=== PATIENT | male | born 1990 | race Caucasian/White ===

== ENCOUNTER 2018-02-07 16:14 | Inpatient (IN) | END 2018-02-17 19:00 | disposition home health service (06) | DRG 722 ==

== ENCOUNTER 2018-02-27 11:32 | Inpatient (IN) | END 2018-03-07 13:30 | disposition home health service (06) | DRG 552 ==

== ENCOUNTER → 2018-05-05 | Outpatient (CLI) | END | disposition home or self-care (01) ==

== ENCOUNTER 2018-11-01 00:23 | Emergency (ER) | payer OTHER ==
[~2018-11-01] VITALS: Ht 170.2 cm; Wt 97.7 kg
[~2018-11-01 00:23] MED LIST: APIX5TAB PO; DOCU-216 PO; HYDR2TAB36 PO; MORP15TA3 PO; PROC5TAB9 PO; ZOF8 PO
[2018-11-01 00:24] VITALS: Ht 170.2 cm; Wt 97.7 kg
[2018-11-01] MEDS ORDERED: IBUPROFEN 600 MG TAB PO ONE (03:30)
[2018-11-01 05:51] VITALS: BP 110/71; PULSE 64; RESP 18
--- NOTE | 2018-11-03 21:40 | ERD ---
ER Documentation Chief Complaint Chief Complaint RIGHT TESTICULAR PAIN XTODAY; NO KNOWN INJ; NO REDNESS, NO SWELLING HPI 28yo M presents with complaint of Right testicular pain x 1 day. Pt states to have been engaging in sexual intercourse when began to feel pain in the right testicle. Rates pain currently as 2/10; however, expresses concern d/t current hx of Left sided testicular cancer. Last round Chemotherapy 5 months ago, and currently awaiting surgery. Pt denies fevers, chills, urinary symptoms, penile discharge, or abdominal pain. ROS All systems reviewed and are negative except as per history of present illness. Medications Home Meds Active Scripts Prochlorperazine* (Prochlorperazine*) 5 Mg Tablet, 5 MG PO Q6 PRN for NAUSEA for 30 Days, TAB Prov:ISHAAN RAYA MD 03/07/18 Ondansetron Hcl* (Zofran*) 8 Mg Tab, 8 MG PO Q6H PRN for NAUSEA AND OR VOMITING for 30 Days, TAB Prov:ISHAAN RAYA MD 03/07/18 Morphine Sulfate (Morphine Sulfate ER) 15 Mg Tablet.er, 15 MG PO TID for 60 Days, TAB Prov:ISHAAN RAYA MD 03/07/18 Hydromorphone Hcl* (Dilaudid*) 2 Mg Tablet, 2 MG PO Q3H PRN for SEVERE PAIN LEVEL 7-10 for 30 Days, TAB Prov:ISHAAN RAYA MD 03/07/18 Docusate Sodium (Dok) 100 Mg Capsule, 100 MG PO Q12H PRN for CONSTIPATION for 30 Days, #30 CAP Prov:ISHAAN RAYA MD 03/07/18 Apixaban* (Eliquis*) 5 Mg Tablet, 5 MG PO BID for 60 Days, TAB Prov:ISHAAN RAYA MD 02/17/18 Allergies Allergies: Coded Allergies: No Known Allergy (Unverified , 02/24/18) PMhx/Soc History of Surgery: Yes (ivc filter december 2017) Anesthesia Reaction: No Hx Neurological Disorder: No Hx Respiratory Disorders: Yes (pulmonary embolism) Hx Cardiac Disorders: No Hx Psychiatric Problems: No Hx Miscellaneous Medical Probl: Yes (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 Well nourished. No acute distress Head/Eyes: Atraumatic. Normocephalic. PERRL. EOMI ENT: Moist mucous membranes. Voice normal. Neck: Supple. No lymphadenopathy Cardio: Regular rate and rhythm. No murmurs, rubs, or gallops. Resp: No respiratory distress. Normal breath sounds. No wheezes, rales, or rhonchi. Abd: Soft. Non-tender. No guarding, rebound, or rigidity. Non-distended. Exam: Scrotum: Normal Hernia: None Testes/Epid: Right testicle TTP, no warmth, no nodules, w/ normal lie Cremaster: Reflex intact Lymph: No inguinal lymphadenopathy Discharge: None Neuro: Alert and oriented X 3. Normal speech Psych: Normal mood. Normal affect Results 24 hrs Laboratory Tests Test 11/01/18 03:26 Urine Color YELLOW Urine Clarity CLEAR Urine pH 5.0 Urine Specific [place] 1.024 Urine Ketones NEGATIVE mg/dL Urine Nitrite NEGATIVE mg/dL Urine Bilirubin NEGATIVE mg/dL Urine Urobilinogen NEGATIVE mg/dL Urine Leukocyte Esterase NEGATIVE Hannah/ul Urine Hemoglobin NEGATIVE mg/dL Urine Glucose NEGATIVE mg/dL Urine Total Protein NEGATIVE mg/dl Chlamydia trachomatis RNA (TMA) NOT DETECTED Chlamydia/GC Comment SEE NOTE Neisseria gonorrhoeae RNA (TMA) NOT DETECTED Current Medications Medications Dose Sig/Daniel Start Time Status Last (Trade) Ordered Route PRN Stop Time Admin Dose Reason Admin Ibuprofen 600 mg ONCE ONCE 11/01/18 DC 11/01/18 (Motrin) PO 03:30 03:25 11/01/18 03:31 Procedures/MDM PROCEDURE: US Scrotum. FINDINGS: The right testis measures 4.1 x 2.7 x 2.1 cm, and is uniform in appearance. There is color and Doppler flow present within the right testis. The left testis is of similar size and measures 4.0 x 2.9 x 2.0 cm. There is again a small region of inhomogeneity that is mildly hypoechoic relative to the remainder of the testicular parenchyma, containing a few small bright echoes suggesting tiny calcifications within, located in the posterior lower pole, as was noted on the prior ultrasound, with its size currently estimated at 11 x 8 x 7 mm (its size was estimated at 13 x 5 x 5 mm previously). There is color and Doppler flow within the left testis. The epididymis is normal in appearance bilaterally. No significant hydrocele. Bilateral varicocele again seen. IMPRESSION: Relatively similar ultrasound appearance compared to 02/14/2018, including unremarkable appearance of the right testis and epididymis. Left testis remains present with persistent ill-defined region of hypoechogenicity containing several punctate echoes again present in the left lower pole testis, presumably representing the site of the patient's known testicular neoplasm. Bilateral varicocele again present. MDM: This is a pleasant 28yo M with hx of Left Testicular CA who presents to the ED with complaint of Right sided testicular pain x 1 day s/p intercourse. Vitals stable, afebrile. Labs and imaging unremarkable, aside from bilateral varicocele with no change in the appearance of the right testis since previous US. Findings discussed with pt and counseled regarding rest, ice, and use of NSAIDs for pain. Lab and imaging findings given to pt as pt has appointment with Oncologist later this afternoon. Given pt scheduled follow-up and non-emergent findings, it is felt pt appropriate for discharge at this time. Strict f/u with oncologist and PCP discussed. Strict ED return precautions given. Pt expressed verbal understanding and agreement to treatment plan. All questions addressed and answered. Departure Diagnosis: Primary Impression: Testicular pain Additional Impression: History of testicular cancer Condition: Stable Patient Instructions: Cancer of the Testicles, Contusion, Testicles Or Scrotum CLAIRE SANTIZO PA-C Nov 03, 2018 21:40
== END 2018-11-01 05:52 | disposition home or self-care (01) ==
LOC: FTE 00:23
DX: N50.811 Right testicular pain (principal); Z85.47 Personal history of malignant neoplasm of testis
CPT/HCPCS: 76870; 81003; 87591; Z7610